=== PATIENT | male | born 1960 | race Caucasian/White ===

== ENCOUNTER 2024-04-19 07:11 | Emergency (ER) | payer BC, MEDICAID ==
[~2024-04-19] VITALS: Ht 180.3 cm; Wt 100.9 kg
[2024-04-19] MEDS ORDERED: AMLO-257 PO (07:13)
[2024-04-19] MEDS ORDERED: ASPI-1450 PO (07:13)
[2024-04-19 07:40] LABS: COVID AG,FIA SOURCE NASAL SWAB
[2024-04-19 08:06] LABS: INFLUENZA TYPE A NEGATIVE FOR TYPE A (NEGATIVE); INFLUENZA TYPE B NEGATIVE FOR TYPE B (NEGATIVE); SARS-COV2 (COVID) ANTIGEN,FIA Negative (Negative)
[2024-04-19] MEDS ORDERED: BENZ-227 PO (09:29)
[2024-04-19 09:46] VITALS: BP 154/95; PULSE 91; RESP 17; TEMP 98.2; O2SAT 96
== END 2024-04-19 09:48 | disposition home or self-care (01) ==
LOC: EMS 07:16
DX: J06.9 Acute upper respiratory infection, unspecified (principal); B97.89 Other viral agents as the cause of diseases classified elsewhere; I10 Essential (primary) hypertension; Z90.49 Acquired absence of other specified parts of digestive tract; Z20.822 Contact with and (suspected) exposure to COVID-19
CPT/HCPCS: 87804; 99283